=== PATIENT | female | born 1990 | race Two or more races ===

== ENCOUNTER → 2017-02-03 | Outpatient (CLI) | payer MEDICAID ==
[~2017-02-03] MED LIST: ACE325 PO; ACET-2031 PO; ACET500T68 PO; AMO500 PO; AMOX1TAB3 PO; AZIT1PAC21 PO; AZIT500T47 PO; BACDS GT; BIRTH CONTROL; CEP250 PO; CEPH-13 PO; CIPR-344 PO; DICL-195 PO; DOXY-179 PO; DOXY-228 PO; FAMO20TA28 PO; HYDR-3087 PO; HYDR-385 PO; IBU600 PO; IBU800 PO; IBUP200C71 PO; IBUP600T22 PO; IBUP800T37 PO; KET10 PO; LOR5 PO; LOR5/325 PO; MAGIC; METH0.2T PO; METO-566 PO; METR-1 PO; NAP550 PO; NORG1TAB76 PO; OND4 PO; ONDA4TAB PO; ONDA4TAB9 PO; OXYB-13 PO; PAIN MED; PER PO; PERD PO; PHEN200T32 PO; PNV1TABL92 PO; POTA20TA85 PO; PREN-85; PRO25 PO; PRO25S PR; PROM-110 PO; SULF-198 PO; TRA50 PO; TRAM-420 PO; [UNRECOGNIZED DRUG - OTHER]; bcp; cephalexin; hydrocodone; percocet
== END ==
LOC: AMB 15:23
PROVIDERS: ATTEND Nurse Practitioner
DX: J11.1 Influenza due to unidentified influenza virus with other respiratory manifestations (principal); R07.9 Chest pain, unspecified; R55 Syncope and collapse
CPT/HCPCS: A0425; A0427

== ENCOUNTER 2017-06-23 08:28 | Emergency (ER) | payer MEDICAID ==
[~2017-06-23 08:28] MED LIST changes: -HYDR12.556 PO
[2017-06-23] MEDS ORDERED: HYDR12.556 PO (08:42)
[2017-06-23] MEDS ORDERED: NS(*) 0.9% 1000 ML BAG 1,000 ML IV ONE (08:44)
[2017-06-23] MEDS ORDERED: KETOROLAC 30 MG/ML VIAL IVP ONE (08:45)
[2017-06-23 09:06] LABS: PLATELET COUNT, AUTOMATED 308 K/uL (150-450)
[2017-06-23] MEDS ORDERED: traMADol 50 MG TAB PO ONE (10:05)
[2017-06-23] MEDS ORDERED: ACETAMINOPHEN 500 MG TAB PO ONE (10:05)
[2017-06-23 11:16] VITALS: BP 131/83
[2017-06-23] MEDS ORDERED: TRAM-420 PO (11:29)
[2017-06-23] MEDS ORDERED: IBUP600T22 PO (11:29)
--- NOTE | 2017-06-23 11:30 | ER Report ---
History and Physical Time Seen By MD: 08:30 Hx. of Stated Complaint: patient reports left sided flank pain that started around 0230 this morning. she has a history of kidney stones and reports this is similar HPI/ROS This is a 26-year-old female who states that she has had multiple bouts of kidney stones. She states that she has only been able to pass one kidney stone, and has had lithotripsy for the remainder of them. She says that she started with left flank pain last night similar to the pain that she gets with her kidney stones. No nausea vomiting and no gross hematuria. Her pain is located in her left flank only and does not radiate. He is having no urinary difficulties. No dysuria, no fever chills. Remainder of the 14 system rev: Yes Allergies: Coded Allergies: kiwi (Verified Allergy, Unknown, SWELLING, 02/03/17) morphine (Verified Allergy, Unknown, 02/03/17) RASH cephalexin (Verified Adverse Reaction, Intermediate, SWELLING, 02/03/17) patient reported with oral version Home Meds Active Scripts Ibuprofen (IBUPROFEN) 600 Mg Tablet, 1 TAB PO Q6H for 10 Days, TAB Prov:SAIRA PORTILLO MD 06/23/17 Tramadol Hcl (TRAMADOL HCL) 50 Mg Tablet, 50 MG PO Q6H Y for PAIN, #6 TAB 0 Refills Prov:SAIRA PORTILLO MD 06/23/17 Reported Medications Hydrochlorothiazide (HYDROCHLOROTHIAZIDE) 12.5 Mg Capsule, 1 TAB PO QDAY, CAPSULE 06/23/17 Acetaminophen (TYLENOL EXTRA STRENGTH) 500 Mg Tablet, 500 MG PO, TAB 12/07/15 Ibuprofen (IBUPROFEN) 600 Mg Tablet, 1 TAB PO TID Y for PAIN, #50 TAB 04/20/15 Discontinued Scripts Potassium Chloride (KLOR-CON M20) 20 Meq Tab.er.prt, 20 MEQ PO QDAY, #5 TAB Prov:ARMANDO STONE RELIEF MATE-BC 02/03/17 Reviewed Nurses Notes: Yes Old Medical Records Reviewed: Yes Hx Smoking: No Smoking Status: Never Smoker Exposure to Second Hand Smoke?: No Hx Substance Use Disorder: No Hx Alcohol Use: No Constitutional Vital Sign - Last 24 Hours 06/23/17 06/23/17 06/23/17 06/23/17 08:36 08:36 08:43 08:58 Temp 97.9 Pulse 96 87 Resp 20 B/P (MAP) 149/83 149/83 (105) Pulse Ox 94 95 95 O2 Delivery Room Air 06/23/17 06/23/17 06/23/17 06/23/17 09:00 09:13 09:24 09:28 Pulse 76 80 B/P (MAP) 132/88 (103) 137/71 (93) Pulse Ox 96 95 06/23/17 06/23/17 06/23/17 06/23/17 09:30 09:43 10:31 11:00 B/P (MAP) 117/64 (81) 129/105 (113) 149/95 (113) Pulse Ox 96 06/23/17 11:16 B/P (MAP) 131/83 (99) Intake and Output 06/23/17 06/23/17 06/24/17 15:00 23:00 07:00 Intake Total 1000 ml Balance 1000 ml Physical Exam General Appearance: The patient is alert, has no immediate need for airway protection and no current signs of toxicity. Eyes: Pupils equal and round no injection. Respiratory: Chest is non tender, lungs are clear to auscultation. Cardiac: regular rate and rhythm Gastrointestinal: Abdomen is soft and non tender, no masses, bowel sounds normal. Musculoskeletal: Left flank TTP Skin: No rashes or lesions. [ ] DIFFERENTIAL DIAGNOSIS: After history and physical exam differential diagnosis was considered for kidney stone, ectopic , uti, pyelonephritis Medical Decision Making Data Points Result Diagram: 06/23/17 0900 06/23/17 09 Laboratory Hematology Test 06/23/17 08:34 06/23/17 09:00 Urine Color Yellow Urine Clarity Slightly-cloudy Urine pH 6.0 pH (4.8-9.5) Urine Specific [place] 1.019 Urine Protein Negative mg/dL (NEGATIVE) Urine Glucose (UA) Negative mg/dL (NEGATIVE) Urine Ketones Negative mg/dL (NEGATIVE) Urine Blood Negative (NEGATIVE) Urine Nitrite Negative (NEGATIVE) Urine Bilirubin Negative (NEGATIVE) Urine Urobilinogen Negative mg/dL (0.2-1.9) Urine Leukocyte Esterase Small (NEGATIVE) Urine RBC None /HPF (0-2/HPF) Urine WBC 7 /HPF (0-5/HPF) Urine Squamous Epithelial Cells Many /LPF (</=FEW) Urine Bacteria Moderate /HPF (NONE-FEW) Urine Mucus Few /HPF (NONE-FEW) Red Blood Count 5.21 M/uL (4.17-5.56) Mean Corpuscular Volume 80.3 fL (80.0-96.0) Mean Corpuscular Hemoglobin 27.9 pg (26.0-33.0) Mean Corpuscular Hemoglobin Concent 34.7 g/dL (32.0-36.0) Red Cell Distribution Width 13.8 % (11.5-14.5) Mean Platelet Volume 7.2 fL (7.2-11.1) Neutrophils (%) (Auto) 64.6 % (39.4-72.5) Lymphocytes (%) (Auto) 25.3 % (17.6-49.6) Monocytes (%) (Auto) 8.3 % (4.1-12.4) Eosinophils (%) (Auto) 1.0 % (0.4-6.7) Basophils (%) (Auto) 0.8 % (0.3-1.4) Nucleated RBC Relative Count (auto) 0.0 /100WBC Neutrophils # (Auto) 7.3 K/uL (2.0-7.4) Lymphocytes # (Auto) 2.9 K/uL (1.3-3.6) Monocytes # (Auto) 0.9 K/uL (0.3-1.0) Eosinophils # (Auto) 0.1 K/uL (0.0-0.5) Basophils # (Auto) 0.1 K/uL (0.0-0.1) Nucleated RBC Absolute Count (auto) 0.00 K/uL Sodium Level 139 mmol/L (137-145) Potassium Level 3.6 mmol/L (3.5-5.0) Chloride Level 103 mmol/L (98-107) Carbon Dioxide Level 19 mmol/L (22-31) Blood Urea Nitrogen 12 mg/dl (7-18) Creatinine 0.70 mg/dl (0.52-1.04) Glomerular Filtration Rate Calc > 60.0 Random Glucose 116 mg/dl (75-110) Calcium Level 9.4 mg/dl (8.4-10.2) Total Bilirubin 0.3 mg/dl (0.2-1.3) Aspartate Amino Transf (AST/SGOT) 21 U/L (0-35) Alanine Aminotransferase (ALT/SGPT) 28 U/L (0-56) Alkaline Phosphatase 106 U/L (0-126) Total Protein 8.0 gm/dl (6.3-8.2) Albumin 4.1 g/dl (3.5-5.0) Human Chorionic Gonadotropin, Qual Negative (NEGATIVE) Chemistry Test 06/23/17 08:34 06/23/17 09:00 Urine Color Yellow Urine Clarity Slightly-cloudy Urine pH 6.0 pH (4.8-9.5) Urine Specific [place] 1.019 Urine Protein Negative mg/dL (NEGATIVE) Urine Glucose (UA) Negative mg/dL (NEGATIVE) Urine Ketones Negative mg/dL (NEGATIVE) Urine Blood Negative (NEGATIVE) Urine Nitrite Negative (NEGATIVE) Urine Bilirubin Negative (NEGATIVE) Urine Urobilinogen Negative mg/dL (0.2-1.9) Urine Leukocyte Esterase Small (NEGATIVE) Urine RBC None /HPF (0-2/HPF) Urine WBC 7 /HPF (0-5/HPF) Urine Squamous Epithelial Cells Many /LPF (</=FEW) Urine Bacteria Moderate /HPF (NONE-FEW) Urine Mucus Few /HPF (NONE-FEW) White Blood Count 11.4 k/uL (4.5-11.0) Red Blood Count 5.21 M/uL (4.17-5.56) Hemoglobin 14.5 g/dL (12.0-16.0) Hematocrit 41.9 % (34.0-47.0) Mean Corpuscular Volume 80.3 fL (80.0-96.0) Mean Corpuscular Hemoglobin 27.9 pg (26.0-33.0) Mean Corpuscular Hemoglobin Concent 34.7 g/dL (32.0-36.0) Red Cell Distribution Width 13.8 % (11.5-14.5) Platelet Count 308 K/uL (150-450) Mean Platelet Volume 7.2 fL (7.2-11.1) Neutrophils (%) (Auto) 64.6 % (39.4-72.5) Lymphocytes (%) (Auto) 25.3 % (17.6-49.6) Monocytes (%) (Auto) 8.3 % (4.1-12.4) Eosinophils (%) (Auto) 1.0 % (0.4-6.7) Basophils (%) (Auto) 0.8 % (0.3-1.4) Nucleated RBC Relative Count (auto) 0.0 /100WBC Neutrophils # (Auto) 7.3 K/uL (2.0-7.4) Lymphocytes # (Auto) 2.9 K/uL (1.3-3.6) Monocytes # (Auto) 0.9 K/uL (0.3-1.0) Eosinophils # (Auto) 0.1 K/uL (0.0-0.5) Basophils # (Auto) 0.1 K/uL (0.0-0.1) Nucleated RBC Absolute Count (auto) 0.00 K/uL Glomerular Filtration Rate Calc > 60.0 Calcium Level 9.4 mg/dl (8.4-10.2) Total Bilirubin 0.3 mg/dl (0.2-1.3) Aspartate Amino Transf (AST/SGOT) 21 U/L (0-35) Alanine Aminotransferase (ALT/SGPT) 28 U/L (0-56) Alkaline Phosphatase 106 U/L (0-126) Total Protein 8.0 gm/dl (6.3-8.2) Albumin 4.1 g/dl (3.5-5.0) Human Chorionic Gonadotropin, Qual Negative (NEGATIVE) Urinalysis Test 06/23/17 08:34 Urine Color Yellow Urine Clarity Slightly-cloudy Urine pH 6.0 pH (4.8-9.5) Urine Specific [place] 1.019 Urine Protein Negative mg/dL (NEGATIVE) Urine Glucose (UA) Negative mg/dL (NEGATIVE) Urine Ketones Negative mg/dL (NEGATIVE) Urine Blood Negative (NEGATIVE) Urine Nitrite Negative (NEGATIVE) Urine Bilirubin Negative (NEGATIVE) Urine Urobilinogen Negative mg/dL (0.2-1.9) Urine Leukocyte Esterase Small (NEGATIVE) Urine RBC None /HPF (0-2/HPF) Urine WBC 7 /HPF (0-5/HPF) Urine Squamous Epithelial Cells Many /LPF (</=FEW) Urine Bacteria Moderate /HPF (NONE-FEW) Urine Mucus Few /HPF (NONE-FEW) ED Course/Re-evaluation ED Course A UA was obtained and was negative for blood or evidence of infection. HCG is also negative. I performed a bedside ultrasound of both kidneys, and there was no hydronephrosis. This patient has had multiple CAT scans at a young age, and I do not think she needs an additional CT scan today. Her pain improved with Toradol and tramadol in the emergency department. Although she could have an underlying kidney stone it is not causing nausea, vomiting, or hydronephrosis. I reviewed her past 2 CT scans, and there was no evidence of residual kidney stones. She has a follow-up appointment with Dr. Bates already scheduled. Decision to Disposition Date: Jun 23, 2017 Decision to Disposition Time: 13:00 Depart Departure Latest Vital Signs Vital Signs Date Time Temp Pulse Resp B/P (MAP) Pulse Ox O2 Delivery O2 Flow Rate FiO2 06/23/17 11:16 131/83 (99) 06/23/17 09:43 96 06/23/17 09:28 80 06/23/17 08:36 97.9 20 Room Air Impression: Primary Impression: Flank pain Condition: Improved Disposition: HOME OR SELF-CARE Referrals: MODESTO AKINS MD (PCP) New Scripts Ibuprofen (IBUPROFEN) 600 Mg Tablet 1 TAB PO Q6H for 10 Days, TAB Prov: SAIRA PORTILLO MD 06/23/17 Tramadol Hcl (TRAMADOL HCL) 50 Mg Tablet 50 MG PO Q6H Y for PAIN, #6 TAB 0 Refills Prov: SAIRA PORTILLO MD 06/23/17 Departure Forms: Off Work/School Form School or Work Release?: Work Number of days to be released: 1 Patient Instructions: Flank Pain (ED) SAIRA PORTILLO MD Jun 23, 2017 11:30
== END 2017-06-23 11:38 | disposition home or self-care (01) ==
LOC: ER 08:29
DX: R10.9 Unspecified abdominal pain (principal)
CPT/HCPCS: 81001; 84703; 85025; 99284; J1885; J7030; 82040; 82247; 82310; 82374; 82435; 82565; 82947; 84075; 84132; 84155; 84295; 84450; 84460; 84520

== ENCOUNTER → 2017-06-23 | Outpatient (CLI) | payer MEDICAID ==
[~2017-06-23] MED LIST changes: +HYDR12.556 PO
--- NOTE | 2017-06-23 18:04 | RADIOLOGY IMAGING REPORT ---
FACILITY: [facility] - [place] PATIENT NAME: Amirah Dobson : 1990 MR: [id number] V: [id number] EXAM DATE: [id number] ORDERING PHYSICIAN: CARLA GARVIN TECHNOLOGIST: Location: [facility] Patient: Amirah Dobson : 1990 Visit/Account:[id number] Date of Sevice: 06/23/2017 ABDOMEN/PELVIS W/O CONTRAST EXAMINATION: CT abdomen/pelvis without IV contrast HISTORY: None TECHNIQUE: CT scan from the lung bases to pubic symphysis without IV contrast. COMPARISON STUDIES: 01/19/2017 FINDINGS: Please note that this exam was tailored for detection of urinary stones. Portions of the upper abdome n may not be included. Also, with intravenous contrast, sensitivity to detection of parenchymal disea se is limited. Right kidney and ureter: No renal stones or renal obstructive uropathy change Left kidney and ureter: No renal stones or renal obstructive uropathy change. Bladder: Negative Liver/Biliary: Negative Pancreas: Negative Spleen: Negative Adrenal glands: Negative Kidneys/Retroperitoneum: Negative Pelvic structures: Uterus and adnexal regions are unremarkable. Bowel/peritoneum/mesenteries: No bowel inflammation. Specifically no appendicitis with a normal-appea ring appendix identified. Vessels: Negative Musculoskeletal/body wall: Negative Lymph node assessment: Several scattered moderately prominent pericecal lymph nodes similar to the pr evious examination Lower chest: Negative IMPRESSION: 1. Negative CT scan of the abdomen/pelvis. Specifically no renal stone or renal obstructive uropathy change. 2. No appendicitis. 3. Left ovarian cyst measuring approximately 2.5 x 2.0 cm. This appears slightly smaller than the pre vious CT from January 2017 Report Dictated By: Jorge Alexander MD at 06/23/2017 5:50 PM Report E-Signed By: Jorge Alexander MD at 06/23/2017 6:00 PM WSN:[id number]
== END ==
LOC: CT 16:20
DX: N83.202 Unspecified ovarian cyst, left side (principal); R59.0 Localized enlarged lymph nodes
CPT/HCPCS: 74176

== ENCOUNTER 2017-06-25 20:36 | Emergency (ER) | payer MEDICAID ==
[~2017-06-25 20:36] MED LIST changes: +HYDR12.556 PO
--- NOTE | 2017-06-25 20:38 | ER Report ---
History and Physical Time Seen By MD: 20:38 HPI/ROS CHIEF COMPLAINT: Left flank pain, left lower quadrant pain HISTORY OF PRESENT ILLNESS: 26-year-old female seen here several days ago with severe left flank pain. She does have history of kidney stones status post lithotripsy 7. She is followed by Dr. Bates. Patient was checked by ultrasound and was thought to have bilateral nonobstructing stones. She followed up as an outpatient with Dr. Bates. She had a CT scan with contrast which didn't show any findings. No kidney stones, no hydronephrosis, there was a large left ovarian cyst noted. Patient has increasing pain tonight. She thought she might be passing another stone. He came to the emergency room for evaluation. She's been having vomiting. She's had no fever. REVIEW OF SYSTEMS: Respiratory: No cough, no dyspnea. Cardiovascular: No chest pain, no palpitations. Gastrointestinal: As above Musculoskeletal: As above Allergies: Coded Allergies: kiwi (Verified Allergy, Unknown, SWELLING, 06/25/17) morphine (Verified Allergy, Unknown, 06/25/17) RASH cephalexin (Verified Adverse Reaction, Intermediate, SWELLING, 06/25/17) patient reported with oral version Home Meds Active Scripts Ondansetron (ZOFRAN ODT) 4 Mg Tab.rapdis, 4 MG PO every 6 hours Y for NAUSEA/ VOMITING, #10 TAB TAKE 1 TABLET BY MOUTH EVERY 12 HOURS Prov:GT WAGNER DO 06/25/17 Ibuprofen (IBUPROFEN) 600 Mg Tablet, 1 TAB PO Q6H for 10 Days, TAB Prov:SAIRA PORTILLO MD 06/23/17 Tramadol Hcl (TRAMADOL HCL) 50 Mg Tablet, 50 MG PO Q6H Y for PAIN, #6 TAB 0 Refills Prov:SAIRA PORTILLO MD 06/23/17 Reported Medications Hydrochlorothiazide (HYDROCHLOROTHIAZIDE) 12.5 Mg Capsule, 1 TAB PO QDAY, CAPSULE 06/23/17 Acetaminophen (TYLENOL EXTRA STRENGTH) 500 Mg Tablet, 500 MG PO, TAB 12/07/15 Ibuprofen (IBUPROFEN) 600 Mg Tablet, 1 TAB PO TID Y for PAIN, #50 TAB 04/20/15 Discontinued Scripts Potassium Chloride (KLOR-CON M20) 20 Meq Tab.er.prt, 20 MEQ PO QDAY, #5 TAB Prov:ARMANDO STONE FRUIT FARMWORKER-BC 02/03/17 Reviewed Nurses Notes: Yes Old Medical Records Reviewed: Yes Hx Smoking: No Smoking Status: Never Smoker Exposure to Second Hand Smoke?: No Hx Substance Use Disorder: No Hx Alcohol Use: No Constitutional Vital Sign - Last 24 Hours 06/25/17 06/25/17 06/25/17 06/25/17 20:43 20:43 20:51 21:00 Temp 99.1 Pulse 124 106 Resp 16 B/P (MAP) 136/106 136/106 (116) 128/72 (90) Pulse Ox 94 97 O2 Delivery Room Air 06/25/17 06/25/17 06/25/17 06/25/17 21:06 21:11 21:26 21:30 Pulse 112 98 97 B/P (MAP) 139/94 (109) Pulse Ox 92 94 95 06/25/17 06/25/17 21:41 21:47 Pulse 90 85 Resp 16 B/P (MAP) 138/88 (105) Pulse Ox 95 95 O2 Delivery Room Air Physical Exam General Appearance: The patient is alert, has no immediate need for airway protection and no current signs of toxicity. Vital signs stable, afebrile, pulse ox normal Eyes: Pupils equal and round no injection. Respiratory: Chest is non tender, lungs are clear to auscultation. Cardiac: regular rate and rhythm Gastrointestinal: Abdomen is soft and non tender, no masses, bowel sounds normal. Positive left CVA tenderness, Musculoskeletal: Neck: Neck is supple and non tender. Extremities have full range of motion and are non tender. Skin: No rashes or lesions. DIFFERENTIAL DIAGNOSIS: After history and physical exam differential diagnosis was considered for abdominal pain including but not limited to appendicitis, cholecystitis, gastritis and urinary tract infection. Medical Decision Making Data Points Result Diagram: 06/25/17204906/25/172049 Laboratory Hematology Test 06/25/17 20:40 06/25/17 20:50 Urine Color Yellow Urine Clarity Slightly-cloudy Urine pH 7.0 pH (4.8-9.5) Urine Specific [place] 1.009 Urine Protein Negative mg/dL (NEGATIVE) Urine Glucose (UA) Negative mg/dL (NEGATIVE) Urine Ketones Negative mg/dL (NEGATIVE) Urine Blood Negative (NEGATIVE) Urine Nitrite Negative (NEGATIVE) Urine Bilirubin Negative (NEGATIVE) Urine Urobilinogen Negative mg/dL (0.2-1.9) Urine Leukocyte Esterase Trace (NEGATIVE) Urine RBC 1 /HPF (0-2/HPF) Urine WBC 1 /HPF (0-5/HPF) Urine Squamous Epithelial Cells Many /LPF (</=FEW) Urine Bacteria Few /HPF (NONE-FEW) Urine Mucus None /HPF (NONE-FEW) Red Blood Count 5.18 M/uL (4.17-5.56) Mean Corpuscular Volume 80.4 fL (80.0-96.0) Mean Corpuscular Hemoglobin 28.1 pg (26.0-33.0) Mean Corpuscular Hemoglobin Concent 34.9 g/dL (32.0-36.0) Red Cell Distribution Width 14.0 % (11.5-14.5) Mean Platelet Volume 7.4 fL (7.2-11.1) Neutrophils (%) (Auto) 59.4 % (39.4-72.5) Lymphocytes (%) (Auto) 30.0 % (17.6-49.6) Monocytes (%) (Auto) 9.5 % (4.1-12.4) Eosinophils (%) (Auto) 0.5 % (0.4-6.7) Basophils (%) (Auto) 0.6 % (0.3-1.4) Nucleated RBC Relative Count (auto) 0.0 /100WBC Neutrophils # (Auto) 9.1 K/uL (2.0-7.4) Lymphocytes # (Auto) 4.6 K/uL (1.3-3.6) Monocytes # (Auto) 1.4 K/uL (0.3-1.0) Eosinophils # (Auto) 0.1 K/uL (0.0-0.5) Basophils # (Auto) 0.1 K/uL (0.0-0.1) Nucleated RBC Absolute Count (auto) 0.00 K/uL Sodium Level 142 mmol/L (137-145) Potassium Level 3.4 mmol/L (3.5-5.0) Chloride Level 104 mmol/L (98-107) Carbon Dioxide Level 22 mmol/L (22-31) Blood Urea Nitrogen 13 mg/dl (7-18) Creatinine 0.70 mg/dl (0.52-1.04) Glomerular Filtration Rate Calc > 60.0 Random Glucose 132 mg/dl (75-110) Calcium Level 9.6 mg/dl (8.4-10.2) Total Bilirubin 0.2 mg/dl (0.2-1.3) Aspartate Amino Transf (AST/SGOT) 23 U/L (0-35) Alanine Aminotransferase (ALT/SGPT) 30 U/L (0-56) Alkaline Phosphatase 99 U/L (0-126) Total Protein 8.2 gm/dl (6.3-8.2) Albumin 4.0 g/dl (3.5-5.0) Amylase Level 113 U/L (0-110) Lipase 125 U/L (23-300) Chemistry Test 06/25/17 20:40 06/25/17 20:50 Urine Color Yellow Urine Clarity Slightly-cloudy Urine pH 7.0 pH (4.8-9.5) Urine Specific [place] 1.009 Urine Protein Negative mg/dL (NEGATIVE) Urine Glucose (UA) Negative mg/dL (NEGATIVE) Urine Ketones Negative mg/dL (NEGATIVE) Urine Blood Negative (NEGATIVE) Urine Nitrite Negative (NEGATIVE) Urine Bilirubin Negative (NEGATIVE) Urine Urobilinogen Negative mg/dL (0.2-1.9) Urine Leukocyte Esterase Trace (NEGATIVE) Urine RBC 1 /HPF (0-2/HPF) Urine WBC 1 /HPF (0-5/HPF) Urine Squamous Epithelial Cells Many /LPF (</=FEW) Urine Bacteria Few /HPF (NONE-FEW) Urine Mucus None /HPF (NONE-FEW) White Blood Count 15.3 k/uL (4.5-11.0) Red Blood Count 5.18 M/uL (4.17-5.56) Hemoglobin 14.6 g/dL (12.0-16.0) Hematocrit 41.7 % (34.0-47.0) Mean Corpuscular Volume 80.4 fL (80.0-96.0) Mean Corpuscular Hemoglobin 28.1 pg (26.0-33.0) Mean Corpuscular Hemoglobin Concent 34.9 g/dL (32.0-36.0) Red Cell Distribution Width 14.0 % (11.5-14.5) Platelet Count 292 K/uL (150-450) Mean Platelet Volume 7.4 fL (7.2-11.1) Neutrophils (%) (Auto) 59.4 % (39.4-72.5) Lymphocytes (%) (Auto) 30.0 % (17.6-49.6) Monocytes (%) (Auto) 9.5 % (4.1-12.4) Eosinophils (%) (Auto) 0.5 % (0.4-6.7) Basophils (%) (Auto) 0.6 % (0.3-1.4) Nucleated RBC Relative Count (auto) 0.0 /100WBC Neutrophils # (Auto) 9.1 K/uL (2.0-7.4) Lymphocytes # (Auto) 4.6 K/uL (1.3-3.6) Monocytes # (Auto) 1.4 K/uL (0.3-1.0) Eosinophils # (Auto) 0.1 K/uL (0.0-0.5) Basophils # (Auto) 0.1 K/uL (0.0-0.1) Nucleated RBC Absolute Count (auto) 0.00 K/uL Glomerular Filtration Rate Calc > 60.0 Calcium Level 9.6 mg/dl (8.4-10.2) Total Bilirubin 0.2 mg/dl (0.2-1.3) Aspartate Amino Transf (AST/SGOT) 23 U/L (0-35) Alanine Aminotransferase (ALT/SGPT) 30 U/L (0-56) Alkaline Phosphatase 99 U/L (0-126) Total Protein 8.2 gm/dl (6.3-8.2) Albumin 4.0 g/dl (3.5-5.0) Amylase Level 113 U/L (0-110) Lipase 125 U/L (23-300) Urinalysis Test 06/25/17 20:40 Urine Color Yellow Urine Clarity Slightly-cloudy Urine pH 7.0 pH (4.8-9.5) Urine Specific [place] 1.009 Urine Protein Negative mg/dL (NEGATIVE) Urine Glucose (UA) Negative mg/dL (NEGATIVE) Urine Ketones Negative mg/dL (NEGATIVE) Urine Blood Negative (NEGATIVE) Urine Nitrite Negative (NEGATIVE) Urine Bilirubin Negative (NEGATIVE) Urine Urobilinogen Negative mg/dL (0.2-1.9) Urine Leukocyte Esterase Trace (NEGATIVE) Urine RBC 1 /HPF (0-2/HPF) Urine WBC 1 /HPF (0-5/HPF) Urine Squamous Epithelial Cells Many /LPF (</=FEW) Urine Bacteria Few /HPF (NONE-FEW) Urine Mucus None /HPF (NONE-FEW) EKG/Imaging Imaging Outpatient CT abdomen and pelvis with IV contrast from yesterday reviewed. TECHNIQUE: CT scan from the lung bases to pubic symphysis without IV contrast. COMPARISON STUDIES: 01/19/2017 FINDINGS: Please note that this exam was tailored for detection of urinary stones. Portions of the upper abdomen may not be included. Also, with intravenous contrast, sensitivity to detection of parenchymal disease is limited. Right kidney and ureter: No renal stones or renal obstructive uropathy change Left kidney and ureter: No renal stones or renal obstructive uropathy change. Bladder: Negative Liver/Biliary: Negative Pancreas: Negative Spleen: Negative Adrenal glands: Negative Kidneys/Retroperitoneum: Negative Pelvic structures: Uterus and adnexal regions are unremarkable. Bowel/peritoneum/mesenteries: No bowel inflammation. Specifically no appendicitis with a normal-appearing appendix identified. Vessels: Negative Musculoskeletal/body wall: Negative Lymph node assessment: Several scattered moderately prominent pericecal lymph nodes similar to the previous examination Lower chest: Negative IMPRESSION: 1. Negative CT scan of the abdomen/pelvis. Specifically no renal stone or renal obstructive uropathy change. 2. No appendicitis. 3. Left ovarian cyst measuring approximately 2.5 x 2.0 cm. This appears slightly smaller than the previous CT from January 2017 ED Course/Re-evaluation Clinical Indication for ER IV: Hydration, IV Access ED Course Patient admitted to an examination room. H&P is done. The differential diagnoses was considered. On clinical examination. Patient has left lower quadrant and left flank pain. Patient's treated with IV fluid hydration. Repeat diagnostic studies are performed. She does have indeed to have a white blood count of 15,000. Urinalysis is unremarkable. Her CT scan from yesterday performed per Dr. Bates. Shows an ovarian cyst on the left. Think this is the etiology of her pain. She has referred pain to her flank. Patient's much improved after IV medication. Her CT scan results are reviewed with her. She had not received report from Dr. Bates as of yet. She is provided a copy of the report. She is advised to follow-up with [facility] if she has increased pain. She is given prescriptions for nausea medicine and pain medication. She is advised ibuprofen 600 mg 3 times daily for pain relief. Decision to Disposition Date: Jun 25, 2017 Decision to Disposition Time: 21:40 Depart Departure Latest Vital Signs Vital Signs Date Time Temp Pulse Resp B/P (MAP) Pulse Ox O2 Delivery O2 Flow Rate FiO2 06/25/17 21:47 85 16 138/88 (105) 95 Room Air 06/25/17 20:43 99.1 Impression: Primary Impression: Left flank pain Additional Impressions: Ovarian cyst History of renal calculi Hx of lithotripsy Condition: Improved Disposition: HOME OR SELF-CARE Referrals: MODESTO AKINS MD (PCP) New Scripts Ondansetron (ZOFRAN ODT) 4 Mg Tab.rapdis 4 MG PO every 6 hours Y for NAUSEA/VOMITING, #10 TAB TAKE 1 TABLET BY MOUTH EVERY 12 HOURS Prov: GT WAGNER DO 06/25/17 Patient Instructions: Abdominal Pain (ED), Ovarian Cyst (ED) Additional Instructions: Take ibuprofen 200 mg 3-4 tablets 3 times a day with food Apply heating pad to the affected area Follow-up with Dr. Key regarding your ovarian cyst Follow-up with Dr. Bates has planned, although your your CAT scan shows no evidence of kidney stones. At this time Problem Qualifiers Additional Impressions: Ovarian cyst Laterality: left Qualified Codes: N83.202 - Unspecified ovarian cyst, left side GT WAGNER DO Jun 25, 2017 20:38
[2017-06-25] MEDS ORDERED: NS(*) 0.9% 1000 ML BAG 1,000 ML IV ONE (20:51)
[2017-06-25] MEDS ORDERED: KETOROLAC 30 MG/ML VIAL IVP ONE (20:55)
[2017-06-25] MEDS ORDERED: ONDANSETRON 4 MG/2 ML VIAL IVP ONE (20:55)
[2017-06-25] MEDS ORDERED: HYDROmorphone* 1 MG/ML 1 MG/ML ML IVP ONE (20:55)
[2017-06-25 21:01] LABS: PLATELET COUNT, AUTOMATED 292 K/uL (150-450)
[2017-06-25] MEDS ORDERED: HYDROmorphone 2 MG TAB TH 2 TAB/BOTTLE PO ONE (21:40)
[2017-06-25] MEDS ORDERED: ONDANSETRON 4 MG ODT TH SL ONE (21:40)
[2017-06-25] MEDS ORDERED: ONDA4TAB PO (21:42)
[2017-06-25 21:47] VITALS: BP 138/88
== END 2017-06-25 21:56 | disposition home or self-care (01) ==
LOC: ER 20:43
DX: N83.202 Unspecified ovarian cyst, left side (principal); Z87.442 Personal history of urinary calculi
CPT/HCPCS: 81001; 82150; 83690; 85025; 96361; 96374; 96375; 99283; A9270; J1170; J1885; J2405; J7030; S0119; 82040; 82247; 82310; 82374; 82435; 82565; 82947; 84075; 84132; 84155; 84295; 84450; 84460; 84520

== ENCOUNTER 2017-07-26 19:52 | Emergency (ER) | payer MEDICAID ==
--- NOTE | 2017-07-26 20:01 | ER Report ---
History and Physical Time Seen By MD: 20:01 HPI/ROS CHIEF COMPLAINT: Nausea and vomiting HISTORY OF PRESENT ILLNESS: This is a 26-year-old female who presents to the emergency department for nausea vomiting. Patient states that she is roughly 9 weeks , thought that the nausea and the vomiting today was secondary to her 1st trimester . Patient states nausea and vomiting began around noon today and has been progressively increasing over the afternoon, she has taken some Zofran which did not seem to help. Patient states she called Dr. Stacy who did call in a prescription for Phenergan suppositories which she has used and continues to have nausea and vomiting. Patient also states that she is currently being treated for a urinary tract infection. Patient denies any spotting, bleeding or discharge that unusual for her. She denies aches, chills, chest pain or shortness of breath. No rashes. No headaches. Patient has not had her appointment with Dr. Stacy at this time, she has not had an ultrasound or dopplered heart sounds. REVIEW OF SYSTEMS: Constitutional: No fever, no chills. Eyes: No discharge. ENT: No sore throat. Cardiovascular: No chest pain, no palpitations. Respiratory: No cough, no shortness of breath. Gastrointestinal: As above. Genitourinary: No hematuria. Musculoskeletal: No back pain. Skin: No rashes. Neurological: No headache. Allergies: Coded Allergies: kiwi (Verified Allergy, Unknown, SWELLING, 07/26/17) morphine (Verified Allergy, Unknown, 07/26/17) RASH cephalexin (Verified Adverse Reaction, Intermediate, SWELLING, 07/26/17) patient reported with oral version Home Meds Active Scripts Ondansetron (ZOFRAN ODT) 4 Mg Tab.rapdis, 4 MG PO every 6 hours Y for NAUSEA/ VOMITING, #10 TAB TAKE 1 TABLET BY MOUTH EVERY 12 HOURS Prov:GT WAGNER DO 06/25/17 Reported Medications Promethazine HCl (Phenergan) 25 Mg Supp.rect, 1 SUPP.RECT NM Q6HR 07/26/17 Hydrochlorothiazide (HYDROCHLOROTHIAZIDE) 12.5 Mg Capsule, 1 TAB PO QDAY, CAPSULE 06/23/17 Acetaminophen (TYLENOL EXTRA STRENGTH) 500 Mg Tablet, 500 MG PO, TAB 12/07/15 Discontinued Reported Medications Ibuprofen (IBUPROFEN) 600 Mg Tablet, 1 TAB PO TID Y for PAIN, #50 TAB 04/20/15 Discontinued Scripts Ibuprofen (IBUPROFEN) 600 Mg Tablet, 1 TAB PO Q6H for 10 Days, TAB Prov:SAIRA PORTILLO MD 06/23/17 Tramadol Hcl (TRAMADOL HCL) 50 Mg Tablet, 50 MG PO Q6H Y for PAIN, #6 TAB 0 Refills Prov:SAIRA PORTILLO MD 06/23/17 Past Medical/Surgical History G3, P1. Patient has a past medical and surgical history of hypertension, right tibia fracture, ovarian cyst, kidney stone, lithotripsy. Reviewed Nurses Notes: Yes Hx Smoking: No Smoking Status: Never Smoker Exposure to Second Hand Smoke?: No Hx Substance Use Disorder: No Hx Alcohol Use: No Constitutional Vital Sign - Last 24 Hours 07/26/17 19:57 Temp 99.7 Pulse 103 Resp 20 B/P (MAP) 149/79 Pulse Ox 97 O2 Delivery Room Air Physical Exam General Appearance: The patient is alert, has no immediate need for airway protection and no signs of toxicity. Eyes: Pupils equal and round no pallor or injection. ENT, Mouth: Mucous membranes are moist. Respiratory: There are no retractions, lungs are clear to auscultation. Cardiovascular: Regular rate and rhythm, systolic murmur, no clicks or rubs. Gastrointestinal: Abdomen is soft and non tender, no masses, bowel sounds normal. Neurological: Alert and oriented 4. Moving all extremities. Following all commands. No focal neurodeficits. Skin: Warm and dry, no rashes. Musculoskeletal: Neck is supple non tender. Extremities are nontender, nonswollen and have full range of motion. DIFFERENTIAL DIAGNOSIS: After history and physical exam differential diagnosis was considered for nausea and vomiting including but not limited to gastroenteritis, viral syndrome, , gastritis, appendicitis, and medication side effect. Medical Decision Making Data Points Result Diagram: 07/26/17200707/26/172007 Laboratory Hematology Test 07/26/17 20:08 Red Blood Count 5.34 M/uL (4.17-5.56) Mean Corpuscular Volume 80.4 fL (80.0-96.0) Mean Corpuscular Hemoglobin 27.9 pg (26.0-33.0) Mean Corpuscular Hemoglobin Concent 34.7 g/dL (32.0-36.0) Red Cell Distribution Width 14.5 % (11.5-14.5) Mean Platelet Volume 7.4 fL (7.2-11.1) Neutrophils (%) (Auto) 84.7 % (39.4-72.5) Lymphocytes (%) (Auto) 9.0 % (17.6-49.6) Monocytes (%) (Auto) 5.9 % (4.1-12.4) Eosinophils (%) (Auto) 0.2 % (0.4-6.7) Basophils (%) (Auto) 0.2 % (0.3-1.4) Nucleated RBC Relative Count (auto) 0.0 /100WBC Neutrophils # (Auto) 14.9 K/uL (2.0-7.4) Lymphocytes # (Auto) 1.6 K/uL (1.3-3.6) Monocytes # (Auto) 1.0 K/uL (0.3-1.0) Eosinophils # (Auto) 0.0 K/uL (0.0-0.5) Basophils # (Auto) 0.0 K/uL (0.0-0.1) Nucleated RBC Absolute Count (auto) 0.00 K/uL Urine Color Yellow Urine Clarity Cloudy Urine pH 7.0 pH (4.8-9.5) Urine Specific [place] 1.014 Urine Protein Negative mg/dL (NEGATIVE) Urine Glucose (UA) Negative mg/dL (NEGATIVE) Urine Ketones Negative mg/dL (NEGATIVE) Urine Blood Negative (NEGATIVE) Urine Nitrite Negative (NEGATIVE) Urine Bilirubin Negative (NEGATIVE) Urine Urobilinogen Negative mg/dL (0.2-1.9) Urine Leukocyte Esterase Large (NEGATIVE) Urine RBC <1 /HPF (0-2/HPF) Urine WBC 3 /HPF (0-5/HPF) Urine Squamous Epithelial Cells Many /LPF (</=FEW) Urine Amorphous Crystals Few /HPF Urine Bacteria Few /HPF (NONE-FEW) Urine Mucus None /HPF (NONE-FEW) Sodium Level 138 mmol/L (137-145) Potassium Level 3.6 mmol/L (3.5-5.0) Chloride Level 102 mmol/L (98-107) Carbon Dioxide Level 20 mmol/L (22-31) Blood Urea Nitrogen 10 mg/dl (7-18) Creatinine 0.60 mg/dl (0.52-1.04) Glomerular Filtration Rate Calc > 60.0 Random Glucose 122 mg/dl (75-110) Calcium Level 9.4 mg/dl (8.4-10.2) Total Bilirubin 0.4 mg/dl (0.2-1.3) Aspartate Amino Transf (AST/SGOT) 25 U/L (0-35) Alanine Aminotransferase (ALT/SGPT) 26 U/L (0-56) Alkaline Phosphatase 80 U/L (0-126) Total Protein 8.2 gm/dl (6.3-8.2) Albumin 4.2 g/dl (3.5-5.0) Influenza Virus Type A (PCR) Negative (NEGATIVE) Influenza Virus Type B (PCR) Negative (NEGATIVE) Chemistry Test 07/26/17 20:08 White Blood Count 17.6 k/uL (4.5-11.0) Red Blood Count 5.34 M/uL (4.17-5.56) Hemoglobin 14.9 g/dL (12.0-16.0) Hematocrit 43.0 % (34.0-47.0) Mean Corpuscular Volume 80.4 fL (80.0-96.0) Mean Corpuscular Hemoglobin 27.9 pg (26.0-33.0) Mean Corpuscular Hemoglobin Concent 34.7 g/dL (32.0-36.0) Red Cell Distribution Width 14.5 % (11.5-14.5) Platelet Count 302 K/uL (150-450) Mean Platelet Volume 7.4 fL (7.2-11.1) Neutrophils (%) (Auto) 84.7 % (39.4-72.5) Lymphocytes (%) (Auto) 9.0 % (17.6-49.6) Monocytes (%) (Auto) 5.9 % (4.1-12.4) Eosinophils (%) (Auto) 0.2 % (0.4-6.7) Basophils (%) (Auto) 0.2 % (0.3-1.4) Nucleated RBC Relative Count (auto) 0.0 /100WBC Neutrophils # (Auto) 14.9 K/uL (2.0-7.4) Lymphocytes # (Auto) 1.6 K/uL (1.3-3.6) Monocytes # (Auto) 1.0 K/uL (0.3-1.0) Eosinophils # (Auto) 0.0 K/uL (0.0-0.5) Basophils # (Auto) 0.0 K/uL (0.0-0.1) Nucleated RBC Absolute Count (auto) 0.00 K/uL Urine Color Yellow Urine Clarity Cloudy Urine pH 7.0 pH (4.8-9.5) Urine Specific Hammond 1.014 Urine Protein Negative mg/dL (NEGATIVE) Urine Glucose (UA) Negative mg/dL (NEGATIVE) Urine Ketones Negative mg/dL (NEGATIVE) Urine Blood Negative (NEGATIVE) Urine Nitrite Negative (NEGATIVE) Urine Bilirubin Negative (NEGATIVE) Urine Urobilinogen Negative mg/dL (0.2-1.9) Urine Leukocyte Esterase Large (NEGATIVE) Urine RBC <1 /HPF (0-2/HPF) Urine WBC 3 /HPF (0-5/HPF) Urine Squamous Epithelial Cells Many /LPF (</=FEW) Urine Amorphous Crystals Few /HPF Urine Bacteria Few /HPF (NONE-FEW) Urine Mucus None /HPF (NONE-FEW) Glomerular Filtration Rate Calc > 60.0 Calcium Level 9.4 mg/dl (8.4-10.2) Total Bilirubin 0.4 mg/dl (0.2-1.3) Aspartate Amino Transf (AST/SGOT) 25 U/L (0-35) Alanine Aminotransferase (ALT/SGPT) 26 U/L (0-56) Alkaline Phosphatase 80 U/L (0-126) Total Protein 8.2 gm/dl (6.3-8.2) Albumin 4.2 g/dl (3.5-5.0) Influenza Virus Type A (PCR) Negative (NEGATIVE) Influenza Virus Type B (PCR) Negative (NEGATIVE) Urinalysis Test 07/26/17 20:08 Urine Color Yellow Urine Clarity Cloudy Urine pH 7.0 pH (4.8-9.5) Urine Specific Hammond 1.014 Urine Protein Negative mg/dL (NEGATIVE) Urine Glucose (UA) Negative mg/dL (NEGATIVE) Urine Ketones Negative mg/dL (NEGATIVE) Urine Blood Negative (NEGATIVE) Urine Nitrite Negative (NEGATIVE) Urine Bilirubin Negative (NEGATIVE) Urine Urobilinogen Negative mg/dL (0.2-1.9) Urine Leukocyte Esterase Large (NEGATIVE) Urine RBC <1 /HPF (0-2/HPF) Urine WBC 3 /HPF (0-5/HPF) Urine Squamous Epithelial Cells Many /LPF (</=FEW) Urine Amorphous Crystals Few /HPF Urine Bacteria Few /HPF (NONE-FEW) Urine Mucus None /HPF (NONE-FEW) ED Course/Re-evaluation Clinical Indication for ER IV: Hydration, IV Access ED Course The patient was admitted to room. A history and physical were obtained. Differential diagnoses were considered. A CBC, CMP, UA were obtained. CBC showing a slight elevation in the white blood cells of 17.6. Chemistry unremarkable. UA showing contaminated urine however given the patient's recent urinary tract infection I did go ahead and send for a culture. Negative influenza. A 1 L normal saline bolus was given. 4 mg IV Zofran. I did review these results with the patient and offered IV Phenergan. Patient declined at this time although she did have an episode of nausea and one small episode of vomiting in the bathroom here, she wanted to try small sips of Gatorade or water in lieu of the extra nausea medicine. The patient's heart rate has come down from the 100s down to the 80s. I did tell the patient that this is likely a viral type illness in addition to the and will likely pass. I did however instruct her to follow-up with her primary care provider for reevaluation, the patient states she does have a follow-up appointment scheduled this Monday. I did tell the patient that she should try to get in sooner. The patient expressed understanding and was discharged home. Patient states she does have Phenergan and Zofran at home. Patient states that she is feeling much better now. Decision to Disposition Date: July 26, 2017 Decision to Disposition Time: 21:47 Depart Departure Latest Vital Signs Vital Signs Date Time Temp Pulse Resp B/P (MAP) Pulse Ox O2 Delivery O2 Flow Rate FiO2 07/26/17 19:57 99.7 103 20 149/79 97 Room Air Impression: Primary Impression: Nausea and vomiting during Condition: Improved Disposition: HOME OR SELF-CARE Referrals: MODESTO AKINS MD (PCP) JESSENIA STACY MD Patient Instructions: Nausea and Vomiting in (ED) Additional Instructions: Drink small frequent sips of fluid. Try a bland diet for the next 12-24 hours, such as bananas, rice, applesauce or toast. Follow-up with your primary care provider as directed. Follow-up with Dr. Stacy as scheduled sooner if possible. Return to the emergency department for any other concerns or worsening symptoms. ARMANDO STONE OUTSIDE CUTTER-BC July 26, 2017 20:01
[2017-07-26] MEDS ORDERED: PROM25SU8 PR (20:05)
[2017-07-26] MEDS ORDERED: ONDANSETRON 4 MG/2 ML VIAL IVP ONE (20:10)
[2017-07-26] MEDS ORDERED: NS(*) 0.9% 1000 ML BAG 1,000 ML IV ONE (20:10)
[2017-07-26 20:17] LABS: PLATELET COUNT, AUTOMATED 302 K/uL (150-450)
[2017-07-26 21:30] VITALS: BP 129/70
== END 2017-07-26 22:08 | disposition home or self-care (01) ==
LOC: ER 20:15
DX: O21.9 Vomiting of pregnancy, unspecified (principal); Z87.440 Personal history of urinary (tract) infections
CPT/HCPCS: 81001; 85025; 87088; 87502; 96361; 96374; 99284; J2405; J7030; 82040; 82247; 82310; 82374; 82435; 82565; 82947; 84075; 84132; 84155; 84295; 84450; 84460; 84520

== ENCOUNTER → 2018-02-05 | Outpatient (CLI) | payer MEDICAID ==
[~2018-02-05] VITALS: Ht 160 cm; Wt 89.4 kg
[~2018-02-05] MED LIST changes: +ACETAMINOPHEN 500 MG TAB PO ONE; +IBUP-136 PO; -IBUP200C71 PO; +PREN-148 PO; +PROM25SU8 PR
[2018-02-05 13:44] VITALS: BP 119/73
[2018-02-05 13:46] VITALS: Ht 160 cm; Wt 89.4 kg
== END ==
LOC: UNDOADMIN 13:18 → L&D 13:18 → OB 13:18 → UNDODISIN 17:00 → EDSTATUS 02-06 18:40
PROVIDERS: ATTEND Obstetrics & Gynecology
DX: O26.893 Other specified pregnancy related conditions, third trimester (principal); Z3A.35 35 weeks gestation of pregnancy
CPT/HCPCS: 81001

== ENCOUNTER → 2018-02-15 | Outpatient (CLI) | payer MEDICAID ==
[~2018-02-15] VITALS: Ht 160 cm; Wt 89.4 kg
[~2018-02-15] MED LIST changes: -ACETAMINOPHEN 500 MG TAB PO ONE; +DOCU-416 PO
[2018-02-15 14:40] VITALS: BP 138/88; Ht 160 cm; Wt 89.4 kg
== END ==
LOC: L&D 14:20 → INTOOBSV 14:20 → UNDOADMOB 14:20 → OB 14:20 → UNDODISOB 16:09 → EDSTATUS 02-19 10:37
PROVIDERS: ATTEND Obstetrics & Gynecology
DX: O42.913 Preterm premature rupture of membranes, unspecified as to length of time between rupture and onset of labor, third trimester (principal); Z3A.36 36 weeks gestation of pregnancy
CPT/HCPCS: 84112; G0378; G0379

== ENCOUNTER 2018-02-28 19:25 | Inpatient (IN) | payer MEDICAID ==
[~2018-02-28] VITALS: Ht 162.6 cm; Wt 89.4 kg
[2018-02-28] MEDS ORDERED: OXYTOCIN 30 UNIT/D5LR 500 ML 500 ML IV PRN (20:06)
[2018-02-28] MEDS ORDERED: FAMOTIDINE(*) 20MG/50ML PREMIX 50 ML IVPB PRN (20:06)
[2018-02-28] MEDS ORDERED: ZOLPIDEM TARTRATE 5 MG TAB PO PRN (20:10)
[2018-02-28] MEDS ORDERED: LIDOCAINE/SOD BICARB 8.4% SYR SC PRN (20:10)
[2018-02-28] MEDS ORDERED: TERBUTALINE SULF 1 MG/ML VIAL SUBQ PRN (20:10)
[2018-02-28] MEDS ORDERED: MISOPROSTOL 25 MCG CAP PV PRN (20:10)
[2018-02-28] MEDS ORDERED: cefOXitin/DEX(*) 2GM/50ML PREM 50 ML IVPB PRN (20:10)
[2018-02-28] MEDS ORDERED: fentaNYL CITR 100 MCG/2 ML AMP IVP PRN (20:10)
[2018-02-28] MEDS ORDERED: DINOPROSTONE 10 MG INSERT PV ONE (20:10)
[2018-02-28] MEDS ORDERED: METOCLOPRAMIDE 10 MG/2 ML SDV IVP PRN (20:10)
[2018-02-28] MEDS ORDERED: LIDOCAINE 1% LOCAL 300 MG/30ML INJ PRN (20:10)
--- NOTE | 2018-02-28 20:34 | History & Physical ---
History of Present Illness Age of Patient: 27 : 3 Para or TPAL: 1 EDC per LMP: Mar 10, 2018 Estimated Gestational Age: 38.4 Chief Complaint IOL History of Present Illness Presents for IOL due to chronic hypertension at 38 weeks. She has been followed for hypothyroidism and stable. GBS positive. O pos. Past Medical, Surgical, Family and Obstetric Histories reviewed. Please see ACOG chart. History Patient's Blood Type: O Positive Rubella Status: Non-Immune Group B Strep Screen: Positive Obstetrical History: in [place] in 2012 Allergies: Coded Allergies: kiwi (Verified Allergy, Unknown, SWELLING, 07/26/17) morphine (Verified Allergy, Unknown, 07/26/17) RASH cephalexin (Verified Adverse Reaction, Intermediate, SWELLING, 07/26/17) patient reported with oral version Med Rec Home Meds Active Scripts Ondansetron (ZOFRAN ODT) 4 Mg Tab.rapdis, 4 MG PO every 6 hours PRN for NAUSEA/VOMITING, #10 TAB TAKE 1 TABLET BY MOUTH EVERY 12 HOURS Prov:GT WAGNER DO 06/25/17 Reported Medications Docusate Sodium (COLACE) 100 Mg Capsule, 100 MG PO, CAPSULE 02/14/18 Vit W-Ca,Fe,FA(<1 mg) ( Formula) 1 Each Tablet, PO DAILY 02/05/18 Acetaminophen (TYLENOL EXTRA STRENGTH) 500 Mg Tablet, 500 MG PO, TAB 12/07/15 Review of Systems All Systems Reviewed/Normal: Yes, Except as Noted Exam General Exam General Apperance: Alert/Awake/No Acute Distress Neuro: No Gross deficits Cardiovascular: Regular Rate and Rhythm Respiratory: No Respiratory Distress Abdomen: Soft, Non-Tender, Non-Distended, Gravid - Non-Tender Extremities: No Cyanosis,Clubbing or Edema Integumentary: Skin Intact without Lesions or Rash Psychological: Alert & Oriented X3 Cervical Dialation: 3.5 Cervical Effacement (%): 80 Cervical Consistency: Soft Cervical Position: Anterior Station: -2 Presentation: Vertex Fetus Heart Tone Variabilty: Moderate FHT Accelerations: 15X15 FHT Category: I Medical Decision Making VTE Prophylasis: Adult Deep Vein Thrombosis/Pulmonary: No Pharmacological Contraindicati: Pt at Low Risk for VTE Mechanical Contraindications: Pt at Low Risk for VTE Assessment and Plan IT SYSTEMS ADMINISTRATOR Plan: Routine Labor/Induct Care Problems: (1) Chronic hypertension in obstetric context in third trimester Assessment & Plan: IOL with Pitocin through night. Anticipate . SHASHANK MERCADO MD Feb 28, 2018 20:33
[2018-02-28 20:56] LABS: PLATELET COUNT, AUTOMATED 271 K/uL (150-450)
[2018-02-28 21:45] VITALS: BP 124/79; Ht 162.6 cm; Wt 89.4 kg
[2018-02-28] MEDS ORDERED: PANTOPRAZOLE SOD 40 MG IV VIAL IVP PRN (22:00)
[2018-02-28] MEDS ORDERED: ACETAMINOPHEN 500 MG TAB PO PRN (22:00)
[2018-02-28] MEDS ORDERED: CALCIUM CARBONATE 500 MG CHEW PO PRN (22:00)
[2018-02-28] MEDS ORDERED: ONDANSETRON 4 MG/2 ML VIAL IVP PRN (22:00)
[2018-03-01] MEDS ORDERED: PENICILLIN G 5 MILLUN/100 ML 100 ML IVPB ONE (01:55)
[2018-03-01] MEDS: LR(*) 1000 ML BAG 1,000 ML IV PRN ×3 (02:07→11:46)
[2018-03-01] MEDS: PENICILLIN G 2.5 MILLUN/100 ML 100 ML IVPB SCH ×4 (05:48→18:30)
[2018-03-01] MEDS ORDERED: DOCUSATE SODIUM 100 MG CAP PO ONE (05:50)
[2018-03-01] MEDS ORDERED: fentaNYL CITR 100 MCG/2 ML AMP IT PRN (07:00)
[2018-03-01] MEDS ORDERED: BUPIVACAINE 0.25% MPF INJ EPI PRN (07:00)
[2018-03-01] MEDS ORDERED: BUPIVACAINE 0.5% INJ 30ML VIAL EPI PRN (07:00)
[2018-03-01] MEDS ORDERED: FENTANYL/ROPIVACAINE 100 ML BAG EPI PRN (07:00)
[2018-03-01] MEDS ORDERED: LIDOCAINE/PF 2% 200MG/10ML AMP 200 MG/10 ML AMPUL EPI PRN (07:00)
[2018-03-01] MEDS ORDERED: LIDO/EPI 2% MPF 1:200,000 20ML EPI PRN (07:00)
--- NOTE | 2018-03-01 11:52 | Anesthesia OB Pre-Anes Eval ---
History of Present Illness Anesthesia Start Date: Mar 01, 2018 Anesthesia Start Time: 10:45 OB Anesthesia Diagnosis: induction - medical Complications: None known EDC: Mar 11, 2018 : 3 Para: 1 Vital Signs: Vital Signs Date Time Temp Pulse Resp B/P (MAP) Pulse Ox O2 Delivery O2 Flow Rate FiO2 02/28/18 21:45 98.1 100 16 124/79 (94) Room Air Pain Ratin Heart Tones: WNL Result Diagram: 02/28/182045 Height (Inches): 64.00 Weight (Pounds): 197 BMI (kg/m2): 33.8 Past Medical History Medical History: hypertension Surgical History: other (lt ovarian cystectomy) Previous Anesthesia: general, epidural Attended Childbirth Classes?: No Hx Anesthesia Reactions: No Hx Family Anesthesia Reaction: No Current Medications: pitocin Home Meds Active Scripts Ondansetron (ZOFRAN ODT) 4 Mg Tab.rapdis, 4 MG PO every 6 hours PRN for NAUSEA/VOMITING, #10 TAB TAKE 1 TABLET BY MOUTH EVERY 12 HOURS Prov:GT WAGNER DO 06/25/17 Reported Medications Docusate Sodium (COLACE) 100 Mg Capsule, 100 MG PO, CAPSULE 02/14/18 Vit W-Ca,Fe,FA(<1 mg) ( Formula) 1 Each Tablet, PO DAILY 02/05/18 Acetaminophen (TYLENOL EXTRA STRENGTH) 500 Mg Tablet, 500 MG PO, TAB 12/07/15 Allergies: Coded Allergies: kiwi (Verified Allergy, Unknown, SWELLING, 07/26/17) morphine (Verified Allergy, Unknown, 07/26/17) RASH cephalexin (Verified Adverse Reaction, Intermediate, SWELLING, 07/26/17) patient reported with oral version Anesthesia OB ROS Neurological: No migraines/headaches, No seizures, No neuropathy ENT: Denies Tooth caps, Denies Loose teeth, Denies Chipped teeth, Denies De ntures, Denies Bridges, Denies Retainers, Denies Veneers, Denies Implants, Denies Tongue ring Pulmonary: No asthma, No smoker (pks/day/yrs) Airway Class: ll Cardiovascular ROS: No edema, No arrhythmia GI ROS: clear liquids Last Solids Date: Feb 28, 2018 Last Solids Time: 18:00 ROS: No Herpes, No STD(s), No Liver Disease, No Renal Disease Endocrine ROS: No diabetes, No gestational diabetes, No thyroid disorder Musculoskeletal ROS: No low back pain, No low back injury, No scoliosis ASA Classification: 2 Assessment and Plan Anesthesia Plan: CSE Assessment Past Medical, Surgical, Family and Obstetric Histories reviewed. Please see ACOG chart. Epidural anesthesia risks, complications and benefits explained to patient's satisfaction for labor and vaginal delivery and/or section. General anesthesia risks and benefits explained to patient's satisfaction. Reviewed with pt. her last epidural experience, no problems sited. Questions invited, none asked. MANUELITO FITZGERALD CRNA Mar 01, 2018 11:52
--- NOTE | 2018-03-01 11:56 | Procedure Note ---
Anesthetic Placement Note Anesthesia Plan: CSE Permit for Anesthesia Signed: Yes Anesthesia Technique: Patient Sitting Anesthesia Prep: Chlorhexidine Interspace: L 3-4 Local Anesthetic: 1% Lidocaine, 25 Gauge Needle Amount Local - cc's: 2 Anesthesia Needle: 17g Touhy/Schliff Anesthesia Attempts: 1 Loss of Resistance: Air Depth of ANA MARIA (cm): 5 Epidural Needle Placement: No CSF, No Blood, No Parasthesia Intrathecal Needle: 27 Gauge Pencan Cerebral Spinal Fluid: Yes, Clear Catheter Insertion (cm): 7 Catheter Type: Denis - Spring Wound Epidural Dressing: Tegaderm, Tape, Adhesive [place] Anesthesia Tray: Lot Number ([id number]), Expiration Date (2019-02-09), Reference Number ([id number]) Anesthesia Medications: Intrathecal Dose: mcg Fentanyl (15), mg Marcaine MPF (1.75), Time (1104) Epidural Test Dose: 1.5 Lido/Epi (1:200,000), Dose - mL (2), Time (1130), Negative Epidural Loading Dose: 0.2% Ropivicaine, With Fentanyl 2mcg/ml, Dose - ml (5), Time (1130) Epidural Infusion: 0.2% Ropivicaine, With Fentanyl 2mcg/ml, Start Time: (1130) Epidural Pump Setting: Bolus Dose - mL (5), Lockout - Minutes (20), Maintenance Rate - mL/hr (6), Maximum per Hour - mL (21) Complications: None Comment: Placement of epidural was uneventful. Pt. became comfortable within 5-7 minutes. Encouraged to rest. BP stable MANUELITO FITZGERALD CRNA Mar 01, 2018 11:56
[2018-03-01] MEDS ORDERED: EPIDURAL KEYS XX PRN (12:00)
--- NOTE | 2018-03-01 13:48 | Labor Progress Note ---
Labor Subjective Progress Notes Subjective Epidural in place. 7 cm on last exam. Resting comfortably. 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 She is on 16 mu/min of pitocin. IUPC placed to assist with contraction pattern and strength. Will monitor for progress. SHASHANK MERCADO MD Mar 01, 2018 13:48
--- NOTE | 2018-03-01 13:52 | Anesthesia Progress Note ---
Progress/Maintenance Anesthesia Note Date: Mar 01, 2018 Anesthesia Note Time: 13:50 Pain Intensity: 0 Pump: On Pump Rate (ML/HR): 6 Sensory Level: T-12 Motor Level: Bending Knees-Bilateral, Other (Rt leg heavy) Dilatation: 7 Position: Left, Tilt Assessment and Plan Assessment No further medications has been given other than epidural pump. Pt. does feel contractions but considers them mild. MANUELITO FITZGERALD CRNA Mar 01, 2018 13:52
[2018-03-01] MEDS ORDERED: DLR(*) 1000 ML BAG 1,000 ML IV SCH (16:07)
[2018-03-01] MEDS ORDERED: ACETAMINOPHEN 325 MG TAB PO ONE (16:10)
--- NOTE | 2018-03-01 17:34 | Anesthesia Progress Note ---
Progress/Maintenance Anesthesia Note Date: Mar 01, 2018 Anesthesia Note Time: 17:30 Pain Intensity: 6 Pump: On Pump Rate (ML/HR): 6 Sensory Level: T-12 Motor Level: Bending Knees-Bilateral Dilatation: 9 Position: Left, Tilt Drug Bolus: 0.5% Marcaine (5 ml) Assessment and Plan Assessment Pt. is feeling more pressure and back pain. Manual bolus of 0.5% Marcaine plain. MANUELITO FITZGERALD CRNA Mar 01, 2018 17:34
--- NOTE | 2018-03-01 17:36 | Anesthesia Progress Note ---
Progress/Maintenance Anesthesia Note Date: Mar 01, 2018 Anesthesia Note Time: 14:30 Pain Intensity: 4 Pump: On Pump Rate (ML/HR): 6 Sensory Level: T-12 Motor Level: Bending Knees-Bilateral Dilatation: 7 Position: Tilt Drug Bolus: Other (Fentenyl 85 mcgs) Assessment and Plan Assessment Pt. feels that contractions are becoming stronger. Fentenyl given per epidural. MANUELITO FITZGERALD CRNA Mar 01, 2018 17:35
--- NOTE | 2018-03-01 18:31 | Anesthesia Progress Note ---
Progress/Maintenance Anesthesia Note Date: Mar 01, 2018 Anesthesia Note Time: 18:30 Pain Intensity: 6 Pump: On Pump Rate (ML/HR): 6 Sensory Level: T-12 Motor Level: Bending Knees-Bilateral Dilatation: 10 Position: Semi-Fowlers Drug Bolus: 0.5% Marcaine (5 ml) Assessment and Plan Assessment Redose given. Going to start pushing. MANUELITO FITZGERALD CRNA Mar 01, 2018 18:31
[2018-03-01] MEDS ORDERED: BENZOCAINE 20% 60 ML BTL TP PRN (19:10)
[2018-03-01] MEDS ORDERED: GLYCERIN/WITCH HAZEL LEAF 1 PK TP PRN (19:10)
[2018-03-01] MEDS ORDERED: APAP/HYDROCODONE 325/5 TAB PO PRN (19:10)
[2018-03-01] MEDS ORDERED: HYDROCORTISONE 2.5% CR 30GM TB PR PRN (19:10)
[2018-03-01] MEDS ORDERED: LANOLIN OINT 7 GM TUBE TP PRN (19:10)
[2018-03-01] MEDS ORDERED: MAGNESIUM HYDROXIDE* 30ML UDCP PO PRN (19:10)
--- NOTE | 2018-03-01 19:16 | OB Delivery Note ---
Delivery Note Vaginal Delivery Type: Spont. Vaginal Delivery Delivery Date: Mar 01, 2018 Delivery Time: 18:55 Estimated Gestational Age(wks): 38.4 Delivery Anesthesia: Epidural Sex: Male Apgars: 1 Minute (6), 5 Minute (9) Repair Needed: Other (none) Estimated Blood Loss: 200 Delivery Complications: Nuchal Cord (x1) Notes: Presented for labor induction last night and was 3-4 cm dilated. Slow Pitocin induction through the night and was 5 cm dilated by AM. Slow active phase of labor, 6 cm by 1011, 7 cm by 1255, 9 cm by 1535 and 10 cm by 1822. Pt had an edematous anterior lip but this reduced over head and began pushing. Initially it was felt to be in ROP position but with pushing, head rotated to RIVAS. FHTs stable and reactive with category 1 at delivery. Head delivered and nuchal cord x 1 noted and reduced. Shoulders delivered with maternal push with minimal manipulation and remainder of baby followed. Baby stimulated and responded and placed on maternal abdomen for further attention. Cord allowed to stop pulsating and then clamped and cut. Placenta delivered spontaneous and intact. No lacerations and no complications. Legal Services Manager in Attendence: No Copies to: SHASHANK MERCADO MD ; SHASHANK MERCADO MD Mar 01, 2018 19:16
--- NOTE | 2018-03-01 19:17 | Anesthesia Progress Note ---
Progress/Maintenance Anesthesia Note Date: Mar 01, 2018 Anesthesia Note Time: 18:15 Pain Intensity: 0 Pump: Off Sensory Level: T-12 Motor Level: Bending Knees-Bilateral Position: Semi-Fowlers Assessment and Plan Assessment Pt. was able to push well. Excellent tolerance of delivery. Empty syringe attached to epidural catheter and RN agrees to remove with ambulation. Patient instructed the first ambulation is to be with help of nursing staff. Instructed to preform deep knee bends at bedside before walking. Anesthesia Stop Day: Mar 01, 2018 Anesthesia Stop Time: 18:15 MANUELITO FITZGERALD CRNA Mar 01, 2018 19:17
[2018-03-01] MEDS ORDERED: ONDANSETRON 4 MG/2 ML VIAL ONE (19:44)
[2018-03-01] MEDS: DOCUSATE CALCIUM 240 MG CAP PO SCH (19:54)
[2018-03-01 20:59] VITALS: BP 134/70
[2018-03-01 21:06] VITALS: BP 131/68
[2018-03-01] MEDS ORDERED: IBUPROFEN 800 MG TAB PO SCH (22:00)
[2018-03-01 23:41] VITALS: BP 129/63
[2018-03-02] MEDS: ACETAMINOPHEN 325 MG TAB PO PRN ×2 (00:57→07:19)
[2018-03-02] MEDS: IBUPROFEN 800 MG TAB PO SCH ×3 (03:39→20:24)
[2018-03-02 03:43] VITALS: BP 97/52
[2018-03-02 07:21] VITALS: BP 129/64
--- NOTE | 2018-03-02 08:50 | OB/GYN Progress Note ---
OB Subjective Progress Notes Subjective Feeling OK, but some low back and pelvic pain. Ambulating and voiding well. Moderate lochia. Baby doing well. Patient wants to go home this evening if possible. OB Objective Physical Exam Vital Signs Date Time Temp Pulse Resp B/P (MAP) Pulse Ox O2 Delivery O2 Flow Rate FiO2 03/02/18 07:21 98.0 95 18 129/64 (85) 95 02/28/18 21:45 Room Air Intake and Output 03/02/18 07:00 Intake Total 2900 ml Output Total 1700 ml Balance 1200 ml Intake IV Total 2900 ml Output Urine Total 1700 ml BP's stable. General Appearance: Alert/Awake/No Acute Distress Cardiovascular: Regular Rate and Rhythm Respiratory: No Respiratory Distress, Clear to Auscultation Abdomen: Soft, Non-Tender, Non-Distended, Bowel Sounds Present, Fundus Firm (at U) Extremities: Reflexes (3+/4 and symmetric), Edema (1-2+ pedal and ankle); No Tender Calves Integumentary: Skin Intact without Lesions or Rash Psychological: Alert & Oriented X3, Appropriate Mood & Affect Result Diagram: 03/02/18 0628 Assessment and Plan Problems: (1) care and examination immediately after delivery Assessment & Plan: Doing well . Discharge home this evening if baby able to go also. (2) Chronic hypertension in obstetric context in third trimester Status: Chronic NELLY BENITEZ MD Mar 02, 2018 08:50
[2018-03-02] MEDS ORDERED: DIPHTH/TETANUS/ACEL. PERTUSSIS IM ONLY ONE (09:00)
[2018-03-02] MEDS ORDERED: MEASLES,MUMP,RUBELLA VAC 0.5ML SUBQ ONE (09:00)
[2018-03-02] MEDS ORDERED: INFLUENZA VIRUS VAC 0.5ML SYR IM ONLY ONE (09:00)
[2018-03-02] MEDS: DOCUSATE CALCIUM 240 MG CAP PO SCH ×2 (09:04→20:24)
[2018-03-02 12:00] VITALS: BP 128/64
--- NOTE | 2018-03-02 15:22 | Anesthesia Post Eval Note ---
Anesthesia Post Eval Note Vital Signs Date Time Temp Pulse Resp B/P (MAP) Pulse Ox O2 Delivery O2 Flow Rate FiO2 03/02/18 07:21 98.0 95 18 129/64 (85) 95 02/28/18 21:45 Room Air Pt able to participate in Eval: Yes Cardiovascular Status: Satisfactory Respiratory Status: Satisfactory Pain Managment: Satisfactory PO Nausea/Vomiting: Satisfactory Temperature Management: Satisfactory Mental Status: Satisfactory, Alert, Oriented X3 Post-Op Hydration Status: Satisfactory, Tolerating PO Well, Voiding w/o Difficulty Anesthesia Type: CSE Anesthesia Tolerance: Tolerated procedure well without apparent anesthetic complications. LP site clear, no redness or edema. Denies headache or any residual paresthesia. Vital Signs Stable, Patient comfortable and condition stable. MANUELITO FITZGERALD CRNA Mar 02, 2018 15:22
--- NOTE | 2018-03-02 17:36 | OB/GYN Progress Note ---
OB Subjective Progress Notes Subjective Feeling fine, wants to go home. Baby also doing well, ready for discharge. Lochia decreasing. Intermittent burning with urination, also some low back and pelvic pain, relieved by Ibuprofen and Tylenol. OB Objective Physical Exam Vital Signs Date Time Temp Pulse Resp B/P (MAP) Pulse Ox O2 Delivery O2 Flow Rate FiO2 03/02/18 07:21 98.0 95 18 129/64 (85) 95 02/28/18 21:45 Room Air Intake and Output 03/02/18 07:00 Intake Total 2900 ml Output Total 1700 ml Balance 1200 ml IV Total 2900 ml Output Urine Total 1700 ml BP's stable. General Appearance: Alert/Awake/No Acute Distress Abdomen: Soft, Non-Tender, Non-Distended, Bowel Sounds Present, Fundus Firm (at U) Extremities: Reflexes (3+/4 and symmetric), Edema (1+ pedal and ankle); No Tender Calves Integumentary: Skin Intact without Lesions or Rash Psychological: Alert & Oriented X3, Appropriate Mood & Affect Result Diagram: 03/02/18 0628 Assessment and Plan Problems: (1) care and examination immediately after delivery Assessment & Plan: Doing well , ready for discharge. (2) Chronic hypertension in obstetric context in third trimester Status: Chronic Assessment & Plan: Normal BP's. NELLY BENITEZ MD Mar 02, 2018 17:36
[2018-03-02] MEDS ORDERED: Benzocaine 60 ML TP (17:40)
[2018-03-02] MEDS ORDERED: IBUP800T37 PO (17:40)
[2018-03-02] MEDS ORDERED: DOCU240C67 PO (17:40)
[2018-03-02] MEDS ORDERED: Lanolin TP (17:40)
[2018-03-02] MEDS ORDERED: TUCKS TP (17:40)
--- NOTE | 2018-03-02 17:46 | OB/GYN Discharge Summary ---
Discharge Summary Reason for Hosp/Final Diag: (1) care and examination immediately after delivery Hospital Course & Plan: After induction of labor with normal term delivery at 38 weeks, due to mild chronic hypertension, the patient had no problems or complications. Her diet and activities were rapidly advanced. Her b sampson did well. Both were discharged home about 24 hours after delivery, in good condition. (2) Chronic hypertension in obstetric context in third trimester Status: Chronic Lates Vital Signs Vital Signs Date Time Temp Pulse Resp B/P (MAP) Pulse Ox O2 Delivery O2 Flow Rate FiO2 03/02/18 07:21 98.0 95 18 129/64 (85) 95 02/28/18 21:45 Room Air Weight (Pounds): 197 Result Diagram: 03/02/18627 Condition: Improved Discharge: Home, Self Long Term Meds Active Scripts Ondansetron (ZOFRAN ODT) 4 Mg Tab.rapdis, 4 MG PO every 6 hours PRN for NAUSEA/VOMITING, #10 TAB TAKE 1 TABLET BY MOUTH EVERY 12 HOURS Prov:GT WAGNER DO 06/25/17 Reported Medications Docusate Sodium (COLACE) 100 Mg Capsule, 100 MG PO, CAPSULE 02/14/18 Vit W-Ca,Fe,FA(<1 mg) ( Formula) 1 Each Tablet, PO DAILY 02/05/18 Acetaminophen (TYLENOL EXTRA STRENGTH) 500 Mg Tablet, 500 MG PO, TAB 12/07/15 Follow up with: Dr. Alex [phone] Follow up in: 6 wks PP or PO Discharge Diet: As Tolerates Discharge Activity: As Tolerates Copies to: SHASHANK ALEX MD ; NELLY BENITEZ MD Mar 02, 2018 17:46
[2018-03-02 19:28] VITALS: BP 125/79
== END 2018-03-02 20:45 | disposition home or self-care (01) | DRG 807 ==
LOC: OB 19:25
PROVIDERS: ADMIT Obstetrics & Gynecology; ATTEND Obstetrics & Gynecology
PROC: 10E0XZZ Delivery of Products of Conception, External Approach (ICD-10-PCS; principal; 2018-03-01)
PROC: 10H07YZ Insertion of Other Device into Products of Conception, Via Natural or Artificial Opening (ICD-10-PCS; 2018-03-01)
DX: O10.92 Unspecified pre-existing hypertension complicating childbirth (principal); Z37.0 Single live birth; O99.824 Streptococcus B carrier state complicating childbirth; O69.81X0 Labor and delivery complicated by cord around neck, without compression, not applicable or unspecified; O99.284 Endocrine, nutritional and metabolic diseases complicating childbirth; E03.9 Hypothyroidism, unspecified; Z3A.38 38 weeks gestation of pregnancy; Z88.5 Allergy status to narcotic agent; Z88.8 Allergy status to other drugs, medicaments and biological substances; Z23 Encounter for immunization
CPT/HCPCS: 36415; 85025; 85027; 86703; 86850; 86900; 86901; 90707; J2405; J2540; J2590; J3010; J7120; S0020